=== PATIENT | female | born 1985 | race Caucasian/White ===

== ENCOUNTER 2019-03-29 10:26 | Emergency (ER) | payer OTHER ==
[2019-03-29 10:31] VITALS: BP 124/69; PULSE 71; RESP 16; TEMP 98.7
[2019-03-29] MEDS ORDERED: DEXAMETHASONE 4 MG TAB PO STA (11:09)
--- NOTE | 2019-03-29 11:16 | ED ---
ENT HPI - General Chief complaint: ENT Stated complaint: ENT Time Seen by Provider: 03/29/19 10:30 Source: patient Mode of arrival: ambulatory Limitations: no limitations - History of Present Illness Initial comments: 33 year old female who denies past medical history presenting today for chief complaint of sore throat. She states she has had it on and off sore throat for 3 weeks. She states she was concerned about strep pharyngitis. Patient is currently on a 10 day course of Keflex. Patient states this is for treatment of a urinary tract infection. Patient states she feels as though there are ulcers on the right side of her throat. Patient denies any external lumps. Patient states that her voice is occasionally hoarse. Patient has a difficulty swallowing or breathing. Patient denies fever or chills night sweats. Patient denies neck stiffness or headache. Remaining review of systems negative upon arrival patient appears well no signs of acute distress. - Related Data Allergies Allergy/AdvReac Type Severity Reaction Status Date / Time Iodinated Contrast- Oral and Allergy Unknown Verified 03/29/19 10:31 IV Dye nitrofurantoin Allergy Unknown Verified 03/29/19 10:31 [From Macrobid] Review of Systems ROS Statement: Those systems with pertinent positive or pertinent negative responses have been documented in the HPI. ROS Other: All systems not noted in ROS Statement are negative. Past Medical History Past Medical History: No Reported History History of Any Multi-Drug Resistant Organisms: None Reported Past Surgical History: No Surgical Hx Reported Past Psychological History: Anxiety Smoking Status: Never smoker Past Alcohol Use History: None Reported Past Drug Use History: None Reported General Exam - General Exam Comments Initial Comments: General: The patient is awake and alert, in no distress, and does not appear acutely ill. Eye: +3 mm pupils are equal, round and reactive to light, extra-ocular mo vements are intact. No nystagmus. There is normal conjunctiva bilaterally. No signs of icterus. No photophobia Ears, nose, mouth and throat: There are moist mucous membranes and no oral lesions. Oropharynx was mildly erythematous there is no tonsillar enlargement exudates or lesions. Uvula midline. Tympanic membranes are not erythematous or is no effusions bulging or retraction. No tenderness to palpation of the mastoid. No anterior cervical lymphadenopathy. Rhinorrhea, clear and bilateral nares. No tripoding, no drooling. Neck: The neck is supple, there is no tenderness or JVD. No nuchal rigidity Cardiovascular: There is a regular rate and rhythm. No murmur, rub or gallop is appreciated. Respiratory: Lungs are clear to auscultation, respirations are non-labored, breath sounds are equal. No wheezes, stridor, rales, or rhonchi. No retractions or abdominal breathing. Gastrointestinal: Soft, non-distended, non-tender abdomen without masses or organomegaly noted. There is no rebound or guarding present. Bowel sounds are unremarkable. Musculoskeletal: Normal ROM, no tenderness. Strength 5/5. Sensation intact. Radial pulses equal bilaterally 2+. Neurological: A&O x 3. CN II-XII intact, There are no obvious motor or sensory deficits. Coordination appears grossly intact. Speech appears normal, no muffling. Skin: Skin is warm and dry and no rashes or lesions are noted. No extremity edema Psychiatric: Cooperative Limitations: no limitations Course Vital Signs 03/29/19 03/29/19 10:26 12:02 Temperature 98.7 F 98.7 F Pulse Rate 71 71 Respiratory 16 16 Rate Blood Pressure 124/69 124/69 O2 Sat by Pulse 97 97 Oximetry Medical Decision Making - Medical Decision Making Very well-appearing 33-year-old female presenting for sore throat on and off for the past 3 weeks. Patient does admit to occasional hoarseness. Patient denies any compressive symptoms. She does have difficulty breathing or swallowing. Patient is afebrile upon arrival nontoxic. Appears well-hydrated on examination . Patient was concerned of strep pharyngitis. There are no clinical signs concerning for strep pharyngitis on examination. Patient is however on a ten- day course of Keflex which would cover for strep. I days patient to continue medication as previously prescribed. Patient be given Decadron for symptomatically treatment. In addition given patient's chronicity of symptoms I recommended outpatient ENT follow-up. Return parameters including media return for compressive symptoms including difficulty swallowing breathing were discussed the patient verbalizes understanding. Discussed the case attending provider Dr. Bingham who is agreeable care plan at discharge at this time. Disposition Clinical Impression: Pharyngitis, Sore throat, chronic Disposition: HOME SELF-CARE Condition: Good Instructions (If sedation given, give patient instructions): Pharyngitis (ED) Additional Instructions: Please use medication as discussed. Please follow-up with ENT for further evaluation of chronic sore throat. Please return to emergency room if the symptoms increase or worsen or for any other concerns. Is patient prescribed a controlled substance at d/c from ED?: No Referrals: Ade Foster MD [Primary Care Provider] - 1-2 days Andrea Palencia DO [Doctor of Osteopathic Medicine] - 1-2 days Time of Disposition: 11:16
== END 2019-03-29 12:02 | disposition home or self-care (01) ==
LOC: EC 10:26
DX: J31.2 Chronic pharyngitis (principal); Z88.1 Allergy status to other antibiotic agents; Z91.041 Radiographic dye allergy status
CPT/HCPCS: 99282; J8540

== ENCOUNTER 2024-09-22 17:38 | Emergency (ER) | payer OTHER ==
[2024-09-22 17:45] VITALS: BP 129/98; PULSE 70; RESP 18; TEMP 97.6
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
[2024-09-22] MEDS: IBUPROFEN 600 MG TAB PO STA (19:50)
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
== END 2024-09-22 21:00 | disposition home or self-care (01) ==
LOC: EC 17:38
DX: S16.1XXA Strain of muscle, fascia and tendon at neck level, initial encounter (principal); S50.12XA Contusion of left forearm, initial encounter; Z91.041 Radiographic dye allergy status; Z88.1 Allergy status to other antibiotic agents; Z88.8 Allergy status to other drugs, medicaments and biological substances; V43.52XA Car driver injured in collision with other type car in traffic accident, initial encounter
CPT/HCPCS: 73090; 72125; 70450; 99284; L0120